=== PATIENT | female | born 1970 | race Hispanic/Latino ===

== ENCOUNTER 2020-11-18 21:04 | Emergency (ER) | payer BC ==
[~2020-11-18] VITALS: Ht 152.4 cm; Wt 63.5 kg
[2020-11-18] MEDS ORDERED: ROBAXIN-750750 MG PO (21:34)
[2020-11-18] MEDS ORDERED: DULOXETINE HCL30 MG PO (21:34)
== END 2020-11-18 23:22 | disposition home or self-care (01) ==
LOC: ED 21:04
DX: R20.2 Paresthesia of skin (principal)
CPT/HCPCS: 80053; 84443; 85025; 99284